=== PATIENT | male | born 1975 | race Caucasian/White ===

== ENCOUNTER → 2017-03-04 | Outpatient (CLI) | payer OTHER ==
[2017-03-04 17:26] LABS: BASO % 0.3 % (0.0-1.0); EOS # 0.1 K/mm3 (0.0-0.50); EOS % 1.3 % (0.0-3.0); LARGE UNSTAINED CELL # 0.1 K/mm3 (0.0-0.4); LARGE UNSTAINED CELL % 2.1 % (0.0-4.0); LYMPH # 1.7 K/mm3 (1.5-4.5); LYMPH % 26.5 % (24.0-44.0); MEAN CORPUSCULAR HEMOGLOBIN 31.3 pg (27.0-33.0); MEAN CORPUSCULAR HGB CONC 33.4 g/dl (32.0-36.5); MEAN CORPUSCULAR VOLUME 93.7 fl (80.0-96.0); MONO # 0.4 K/mm3 (0.0-0.8); MONO % 6.6 % (0.0-5.0); NEUTROPHILS % 63.2 % (36.0-66.0); PLATELET COUNT, AUTOMATED 232 k/mm3 (150-450); RED CELL DISTRIBUTION WIDTH 12.4 % (11.5-14.5); WHITE BLOOD COUNT 6.3 K/mm3 (4.0-10.0)
== END ==
LOC: M ADAMS 08:30
PROVIDERS: ATTEND Physician Assistant
DX: S16.1XXA Strain of muscle, fascia and tendon at neck level, initial encounter (principal); X58.XXXA Exposure to other specified factors, initial encounter; Y92.89 Other specified places as the place of occurrence of the external cause; Y93.89 Activity, other specified; Y99.8 Other external cause status

== ENCOUNTER → 2017-03-21 | Outpatient (CLI) | payer OTHER ==
--- NOTE | 2017-03-21 10:30 | REP ---
LEFT SHOULDER SERIES: Three views. HISTORY: Pain in the left shoulder. FINDINGS: Three views of the left shoulder demonstrate normal alignment of the glenohumeral articulation. There is mild narrowing and inferior spurring at the AC joint consistent with early osteoarthritis. No erosive change is seen. Periarticular soft tissues are unremarkable. IMPRESSION: Minimal AC joint spurring. Otherwise negative left shoulder views. Signed by Loki Garcia MD 03/21/2017 02:51 P
== END ==
LOC: M ADAMS 08:49
PROVIDERS: ATTEND Physician Assistant
DX: M25.512 Pain in left shoulder (principal)

== ENCOUNTER → 2017-05-01 | Outpatient (REF) | payer OTHER ==
[2017-05-01 12:45] LABS: MEAN CORPUSCULAR HEMOGLOBIN 31.3 pg (27.0-33.0); MEAN CORPUSCULAR HGB CONC 34.1 g/dl (32.0-36.5); MEAN CORPUSCULAR VOLUME 91.8 fl (80.0-96.0); RED CELL DISTRIBUTION WIDTH 12.8 % (11.5-14.5); WHITE BLOOD COUNT 4.2 K/mm3 (4.0-10.0)
[2017-05-01 13:07] LABS: URIC ACID 6.5 MG/DL (3.5-7.2)
[2017-05-01 13:12] LABS: ERYTHROCYTE SEDIMENTATION RATE 3 mm/hr (0-15)
[2017-05-01 13:24] LABS: BASOPHILS 1 % (0-4); EOSINOPHILS 1 % (0-5)
[2017-05-03 00:08] LABS: Lyme Disease IgG/IgM Antibodie <0.91 ISR (0.00-0.90); Lyme Disease IgM Ab Quantitati <0.80 index (0.00-0.79); SJOGREN'S ANTI SS-A <0.2 AI (0.0-0.9); SJOGREN'S ANTI SS-B <0.2 AI (0.0-0.9)
== END ==
LOC: M LABDRAW1 11:47
PROVIDERS: ATTEND Physician Assistant Surgical
DX: M25.512 Pain in left shoulder (principal)

== ENCOUNTER → 2017-06-21 | Outpatient (CLI) | payer OTHER ==
--- NOTE | 2017-06-22 08:33 | REP ---
MRI BRAIN WITHOUT AND WITH CONTRAST: HISTORY: Left hearing loss. CONTRAST: ProHance 19 mL. There are no areas of abnormal signal intensity in the brain. There is no intraparenchymal hemorrhage, infarct, mass or midline shift. There is no abnormal enhancement. The ventricular system is normal in appearance. There is no extracerebral collection. There is no cerebellopontine angle mass. The inner ear structures are normal in appearance. The mastoid air cells and sinuses are clear. IMPRESSION: There is no intracranial lesion. Signed by Arthur Washington MD 06/22/2017 08:33 A
== END ==
LOC: M RAD 16:05
PROVIDERS: ATTEND Otolaryngology
DX: H90.42 Sensorineural hearing loss, unilateral, left ear, with unrestricted hearing on the contralateral side (principal)
CPT/HCPCS: 70553; A9576

== ENCOUNTER → 2017-06-27 | Outpatient (CLI) | payer OTHER ==
--- NOTE | 2017-06-27 15:47 | REP ---
MRI CERVICAL SPINE WITHOUT CONTRAST: 06/27/2017. Clinical history: Cervical spondylosis. Evaluate for stenosis. Technique: Axial T1-T2 with sagittal T1, T2 and STIR sequences provided. Findings: The normal gentle cervical lordosis is reduced on the sagittal images. The vertebral body heights and their marrow signal are grossly normal throughout. There is loss of disc water signal from C2-3 through C6-7. The disc space height is maintained. The C7-T1 and T1-2 levels maintain height and water signal. Small anterior osteophytes at C6-7. The dens was intact and showed normal relationship to the anterior arch of C1 on this study. There is no cervical cord intrinsic signal abnormality, syrinx, atrophy or mass. Ample subarachnoid space at the craniocervical junction with no cerebellar tonsillar ectopia. At C2-3 there is no disc bulge herniation and no spinal or foraminal stenosis. At C3-4 there is no central canal stenosis. The foramina show encroachment due to uncinate spurs bilaterally. At C4-5 there no significant disc bulge or central canal stenosis. Uncinate spurring on the right contributes to some mild foraminal encroachment, left foramen ample. At C5-6 there is no spinal or foraminal stenosis. No disc herniation or bulge. At C6-7 broad-based disc bulge with a small central annular tear but no thinning of the subarachnoid space, cord compression, spinal or foraminal stenosis. Some uncinate spurs noted but the foramina marginally adequate. At C7-T1 there is no disc bulge or herniation and no spinal or foraminal stenosis. Impression: 1. Mild degenerative disc changes with loss of disc water signal from C2-3 through C6-7 representing some spondylosis and minimal disc bulges as described. The largest at C6-7 but no protrusion, cord compression, central canal stenosis or intrinsic cord signal abnormality. 2. Some mild foraminal encroachment as described above, due to uncinate spurs. Signed by Yunier Jamison MD 06/27/2017 05:16 P
== END ==
LOC: M RAD 13:13
PROVIDERS: ATTEND Physician Assistant Surgical
DX: M47.892 Other spondylosis, cervical region (principal)

== ENCOUNTER → 2017-10-04 | Outpatient (CLI) | payer OTHER ==
--- NOTE | 2017-10-04 19:32 | REP ---
Clinical: Pain with recent trauma. Technique: AP, lateral, bilateral oblique views left wrist. Findings: The carpal bones, surrounding osseous structures, soft tissues, and joint spaces are normal. There is no evidence for acute fracture or dislocation. No subcutaneous emphysema or radiodense foreign body. Impression: Normal wrist series. No acute fracture or dislocation Signed by Basil Montgomery MD 10/04/2017 04:23 P
== END ==
LOC: M ADAMS 08:40
PROVIDERS: ATTEND Physician Assistant Medical
DX: S60.212A Contusion of left wrist, initial encounter (principal); X58.XXXA Exposure to other specified factors, initial encounter; Y92.89 Other specified places as the place of occurrence of the external cause; Y93.89 Activity, other specified; Y99.8 Other external cause status

== ENCOUNTER 2018-02-14 08:26 | Day surgery (SDC) | payer OTHER, SELFPAY ==
[2018-02-14] MEDS ORDERED: LR 1,000 ML IV ×3 (09:00→14:00)
[2018-02-14] MEDS ORDERED: LIDOCAINE 2% INJ 100 MG/5 ML SDV (FOR ANES.) As Ordered (10:51)
[2018-02-14] MEDS ORDERED: PROPOFOL 200 MG/20 ML VIAL As Ordered (10:51)
[2018-02-14] MEDS ORDERED: ROCURONIUM BROMIDE 50 MG/5 ML VIAL As Ordered (10:52)
[2018-02-14] MEDS ORDERED: MIDAZOLAM INJ 2 MG/2 ML VIAL (J2250) As Ordered (10:53)
[2018-02-14] MEDS ORDERED: fentaNYL 100 MCG/2 ML INJECTION (J3010) As Ordered ×2 (10:53→12:53)
[2018-02-14] MEDS ORDERED: REMIFENTANIL 1MG 3ML VIAL As Ordered (10:53)
[2018-02-14] MEDS: LIDOCAINE W/EPINEPHRINE 1% 20ML VIAL As Ordered (12:15)
[2018-02-14] MEDS: EPINEPHrine 1MG/ML INJ 30ML MD-VIAL As Ordered (12:30)
[2018-02-14] MEDS: METHYLENE BLUE 0.5% (5MG/ML) 10 ML AMP (PROVAYBLUE)(Q9968 PER 1MG) As Ordered (12:30)
[2018-02-14] MEDS ORDERED: ONDANSETRON 4MG/2ML VIAL (J2405) As Ordered (12:42)
[2018-02-14] MEDS ORDERED: dexameTHASONE 4 MG/ML 1ML VIAL (J1100) As Ordered (12:42)
[2018-02-14] MEDS: PERCOCET 5MG/325MG TAB PO ×2 (13:52→14:18)
[2018-02-14] MEDS ORDERED: ONDANSETRON 4MG/2ML VIAL (J2405) IV (14:00)
[2018-02-14] MEDS ORDERED: fentaNYL 100 MCG/2 ML INJECTION (J3010) IV (14:00)
[2018-02-14] MEDS: SUMAtriptan SUCCINATE 25 MG TAB PO ×2 (14:54→14:55)
[2018-02-14] MEDS ORDERED: traMADol 50 MG TAB PO (21:00)
== END 2018-02-14 15:50 | disposition home or self-care (01) ==
LOC: M SDC 08:26
DX: J34.2 Deviated nasal septum (principal); J32.0 Chronic maxillary sinusitis; J31.0 Chronic rhinitis; K21.9 Gastro-esophageal reflux disease without esophagitis; G43.909 Migraine, unspecified, not intractable, without status migrainosus; Z79.899 Other long term (current) drug therapy
CPT/HCPCS: 30520

== ENCOUNTER → 2018-02-23 | Outpatient (CLI) | payer OTHER ==
[2018-02-23 13:37] LABS: ALT/SGPT 91 U/L (12-78)
[2018-02-23 13:37] LABS: AST/SGOT 35 U/L (7-37)
== END ==
LOC: M ADAMS 10:55
DX: M19.90 Unspecified osteoarthritis, unspecified site (principal)
CPT/HCPCS: 84460

== ENCOUNTER 2018-07-30 13:27 | Observation (INO) | payer OTHER ==
[2018-07-30] MEDS: diazePAM 5 MG TAB PO (15:27)
[2018-07-30] MEDS: KETOROLAC 30 MG/ML VIAL (J1885) IV (15:28)
[2018-07-30] MEDS ORDERED: HYDROMORPHONE HCL 0.5 MG/ 0.5 ML SYRINGE (J1170 PER 1) As Ordered (16:47)
[2018-07-30] MEDS: HYDROMORPHONE HCL 0.5 MG/ 0.5 ML SYRINGE (J1170 PER 1) IV ×3 (16:54→21:19)
[2018-07-30] MEDS: oxyCODONE 5MG TAB PO (19:00)
[2018-07-30 21:24] LABS: HEMATOCRIT 45.1 % (42.0-52.0); HEMOGLOBIN 15.1 g/dl (13.5-17.5); MEAN CORPUSCULAR HEMOGLOBIN 30.3 pg (27.0-33.0); MEAN CORPUSCULAR HGB CONC 33.5 g/dl (32.0-36.5); MEAN CORPUSCULAR VOLUME 90.4 fl (80.0-96.0); PLATELET COUNT, AUTOMATED 234 10^3/uL (150-450); RED BLOOD COUNT 4.99 10^6/uL (4.30-6.10); RED CELL DISTRIBUTION WIDTH 12.8 % (11.5-14.5); WHITE BLOOD COUNT 5.8 10^3/uL (4.0-10.0)
[2018-07-30] MEDS ORDERED: ACETAMINOPHEN 500 MG TAB PO (21:45)
[2018-07-30] MEDS ORDERED: SUMAtriptan SUCCINATE 25 MG TAB PO (21:45)
[2018-07-30] MEDS ORDERED: PERCOCET 5MG/325MG TAB PO (21:45)
[2018-07-30] MEDS: AMITRIPTYLINE 50 MG TAB PO (22:20)
[2018-07-30] MEDS: TOPIRAMATE (TopAMAX) 25 MG TAB PO (22:21)
[2018-07-30] MEDS: PERCOCET 5MG/325MG TAB PO (23:25)
[2018-07-31] MEDS: PERCOCET 5MG/325MG TAB PO ×2 (06:09→13:49)
[2018-07-31 06:28] LABS: HEMATOCRIT 45.8 % (42.0-52.0); HEMOGLOBIN 15.3 g/dl (13.5-17.5); MEAN CORPUSCULAR HEMOGLOBIN 30.5 pg (27.0-33.0); MEAN CORPUSCULAR HGB CONC 33.4 g/dl (32.0-36.5); MEAN CORPUSCULAR VOLUME 91.2 fl (80.0-96.0); PLATELET COUNT, AUTOMATED 227 10^3/uL (150-450); RED BLOOD COUNT 5.02 10^6/uL (4.30-6.10); RED CELL DISTRIBUTION WIDTH 12.9 % (11.5-14.5); WHITE BLOOD COUNT 5.1 10^3/uL (4.0-10.0)
[2018-07-31 06:48] LABS: ANION GAP 5 MEQ/L (8-16); BLOOD UREA NITROGEN 15 MG/DL (7-18); CALCIUM LEVEL 8.5 MG/DL (8.5-10.1); CARBON DIOXIDE LEVEL 27 MEQ/L (21-32); CHLORIDE LEVEL 111 MEQ/L (98-107); CREATININE FOR GFR 1.27 MG/DL (0.70-1.30); GLOMERULAR FILTRATION RATE > 60.0 (>60); GLUCOSE, FASTING 91 MG/DL (70-100); POTASSIUM SERUM 3.6 MEQ/L (3.5-5.1); SODIUM LEVEL 143 MEQ/L (136-145)
[2018-07-31] MEDS: OMEPRAZOLE 20 MG CAP PO (08:35)
[2018-07-31] MEDS: ENOXAPARIN 40 MG/0.4 ML SYRINGE (J1650) SC (08:35)
[2018-07-31] MEDS: tiZANidine 4 MG TAB PO (08:36)
== END 2018-07-31 14:40 | disposition home or self-care (01) ==
LOC: M ED 13:27 → M ED INP 21:51 → M MS5PR 23:16
PROVIDERS: Internal Medicine
DX: M54.5 Low back pain (principal); G89.29 Other chronic pain; G43.909 Migraine, unspecified, not intractable, without status migrainosus; K21.9 Gastro-esophageal reflux disease without esophagitis; Z79.899 Other long term (current) drug therapy
CPT/HCPCS: J1885

== ENCOUNTER → 2019-07-02 | Outpatient (REF) | payer OTHER ==
[~2019-07-02] MED LIST: AMIT25TA PO; AMIT50TA PO; APAP500T10 PO; FOLI1TAB11 PO; MELO7.5T7 PO; MOBI4TAB PO; OMEP20CA4 PO; PERCOCET PO; SUMA50TA2 PO; TIZA2CAP PO; TIZA2TA PO; TOPI50TA9 PO; TYLE500T78 PO; XYZA5TAB4 PO
[2019-07-02 12:48] LABS: CHOLESTEROL RISK RATIO 6.675 (<5)
[2019-07-02 13:06] LABS: ALBUMIN 4.5 GM/DL (3.2-5.2); ALT/SGPT 47 U/L (12-78); BILIRUBIN,TOTAL 0.4 MG/DL (0.2-1.0); BLOOD UREA NITROGEN 13 MG/DL (7-18); CALCIUM LEVEL 9.8 MG/DL (8.5-10.1); CARBON DIOXIDE LEVEL 25 MEQ/L (21-32); CHLORIDE LEVEL 107 MEQ/L (98-107); CREATININE FOR GFR 1.24 MG/DL (0.70-1.30); GLOMERULAR FILTRATION RATE > 60.0 (>60); GLUCOSE, FASTING 92 MG/DL (70-100); POTASSIUM SERUM 4.3 MEQ/L (3.5-5.1); SODIUM LEVEL 141 MEQ/L (136-145); TOTAL PROTEIN 7.3 GM/DL (6.4-8.2)
== END ==
LOC: M SFHCADAM 08:16
PROVIDERS: ATTEND Physician Assistant
DX: G43.909 Migraine, unspecified, not intractable, without status migrainosus (principal); M15.0 Primary generalized (osteo)arthritis; E78.00 Pure hypercholesterolemia, unspecified

== ENCOUNTER → 2020-08-11 | Outpatient (REF) | payer OTHER ==
[~2020-08-11] MED LIST changes: +OMEP1CAP73 PO; -OMEP20CA4 PO
[2020-08-11 12:29] LABS: HEMATOCRIT 50.7 % (42.0-52.0); HEMOGLOBIN 16.5 g/dl (13.5-17.5); MEAN CORPUSCULAR HEMOGLOBIN 29.9 pg (27.0-33.0); MEAN CORPUSCULAR HGB CONC 32.5 g/dl (32.0-36.5); MEAN CORPUSCULAR VOLUME 91.8 fl (80.0-96.0); PLATELET COUNT, AUTOMATED 273 10^3/uL (150-450); RED BLOOD COUNT 5.52 10^6/uL (4.30-6.10); WHITE BLOOD COUNT 5.7 10^3/uL (4.0-10.0)
[2020-08-11 13:31] LABS: ALBUMIN 4.3 GM/DL (3.2-5.2); ALT/SGPT 44 U/L (12-78); BILIRUBIN,TOTAL 0.3 MG/DL (0.2-1.0); BLOOD UREA NITROGEN 10 MG/DL (7-18); CALCIUM LEVEL 9.4 MG/DL (8.5-10.1); CARBON DIOXIDE LEVEL 24 MEQ/L (21-32); CHLORIDE LEVEL 110 MEQ/L (98-107); CHOLESTEROL LEVEL 290 MG/DL (<200); CHOLESTEROL RISK RATIO 6.904 (<5); CREATININE FOR GFR 1.15 MG/DL (0.70-1.30); FREE T4 0.86 NG/DL (0.76-1.46); GLOMERULAR FILTRATION RATE > 60.0 (>60); GLUCOSE, FASTING 96 MG/DL (70-100); HDL CHOLESTEROL 42 MG/DL (>40); LDL CHOLESTEROL 208 MG/DL (<100); NON-HDL-C 248 MG/DL; POTASSIUM SERUM 4.8 MEQ/L (3.5-5.1); SODIUM LEVEL 140 MEQ/L (136-145); TOTAL PROTEIN 7.3 GM/DL (6.4-8.2); TRIGLYCERIDES LEVEL 201 MG/DL (<150)
== END ==
LOC: M SFHCADAM 08:21
PROVIDERS: ATTEND Physician Assistant
DX: E78.00 Pure hypercholesterolemia, unspecified (principal); K21.9 Gastro-esophageal reflux disease without esophagitis

== ENCOUNTER 2022-03-23 17:24 | Emergency (ER) | payer OTHER ==
[~2022-03-23] VITALS: Ht 172.7 cm; Wt 98.2 kg
[~2022-03-23 17:24] MED LIST changes: -AMIT25TA PO; +AMIT25TA17 PO
[2022-03-23 17:27] VITALS: BP 140/93
== END 2022-03-24 02:54 | disposition left against medical advice (07) ==
LOC: M ED 17:24
DX: Z53.21 Procedure and treatment not carried out due to patient leaving prior to being seen by health care provider (principal)

== ENCOUNTER 2022-03-29 08:21 | Emergency (ER) | payer OTHER ==
[~2022-03-29] VITALS: Ht 172.7 cm; Wt 101.0 kg
[2022-03-29 09:32] LABS: BASO % 0.4 % (0.0-1.0); EOS # 0.2 10^3/uL (0.0-0.5); EOS % 2.9 % (0.0-3.0); HEMATOCRIT 49.1 % (42.0-52.0); HEMOGLOBIN 16.3 g/dl (13.5-17.5); LYMPH # 1.6 10^3/uL (1.5-5.0); MEAN CORPUSCULAR HEMOGLOBIN 30.2 pg (27.0-33.0); MEAN CORPUSCULAR HGB CONC 33.2 g/dl (32.0-36.5); MEAN CORPUSCULAR VOLUME 90.9 fl (80.0-96.0); MONO # 0.4 10^3/uL (0.0-0.8); MONO % 8.1 % (2.0-8.0); NEUTROPHILS # 3.2 10^3/uL (1.5-8.5); PLATELET COUNT, AUTOMATED 249 10^3/uL (150-450); WHITE BLOOD COUNT 5.5 10^3/uL (4.0-10.0)
[2022-03-29 09:55] LABS: ALBUMIN 4.1 GM/DL (3.2-5.2); ALT/SGPT 51 U/L (12-78); BILIRUBIN,DIRECT < 0.1 MG/DL (0.0-0.2); BILIRUBIN,TOTAL 0.3 MG/DL (0.2-1.0); BLOOD UREA NITROGEN 14 MG/DL (7-18); CALCIUM LEVEL 9.7 MG/DL (8.5-10.1); CARBON DIOXIDE LEVEL 25 MEQ/L (21-32); CHLORIDE LEVEL 111 MEQ/L (98-107); GLOMERULAR FILTRATION RATE > 60.0 (>60); GLUCOSE, FASTING 105 MG/DL (70-100); LIPASE 112 U/L (73-393); POTASSIUM SERUM 4.3 MEQ/L (3.5-5.1); SODIUM LEVEL 142 MEQ/L (136-145); TOTAL PROTEIN 7.2 GM/DL (6.4-8.2)
[2022-03-29] MEDS ORDERED: ISOVUE-370 76% 100ML VIAL As Ordered ONE (11:36)
[2022-03-29] MEDS ORDERED: KETOROLAC 30 MG/ML 1ML VIAL IV ONE (13:55)
[2022-03-29] MEDS ORDERED: DICYCLOMINE 10 MG CAP PO ONE (13:55)
[2022-03-29] MEDS ORDERED: DICY10CA13 PO (13:57)
[2022-03-29 14:04] VITALS: BP 128/89
== END 2022-03-29 14:13 | disposition home or self-care (01) ==
LOC: M ED 08:21
DX: R10.9 Unspecified abdominal pain (principal); R19.7 Diarrhea, unspecified; K76.0 Fatty (change of) liver, not elsewhere classified; R11.0 Nausea; R51.9 Headache, unspecified; K21.9 Gastro-esophageal reflux disease without esophagitis; F17.200 Nicotine dependence, unspecified, uncomplicated; Z79.899 Other long term (current) drug therapy
CPT/HCPCS: 74177; 80048; 80076; 83690; 85025; 87428; 96374; 99284; J1885; Q9967

== ENCOUNTER → 2022-06-16 | Outpatient (CLI) | payer OTHER ==
[~2022-06-16] MED LIST changes: +DICY10CA13 PO
== END ==
LOC: M ADAMS 08:53
PROVIDERS: ATTEND Physician Assistant
DX: M79.671 Pain in right foot (principal)

== ENCOUNTER → 2022-06-16 | Outpatient (REF) | payer OTHER ==
[2022-06-16 13:08] LABS: HEMOGLOBIN 15.5 g/dl (13.5-17.5); MEAN CORPUSCULAR HEMOGLOBIN 30.2 pg (27.0-33.0); MEAN CORPUSCULAR VOLUME 91.4 fl (80.0-96.0); PLATELET COUNT, AUTOMATED 258 10^3/uL (150-450); RED BLOOD COUNT 5.14 10^6/uL (4.30-6.10); WHITE BLOOD COUNT 4.9 10^3/uL (4.0-10.0)
[2022-06-16 13:26] LABS: HEMOGLOBIN A1c 5.5 %
[2022-06-16 13:49] LABS: ALBUMIN 4.1 GM/DL (3.2-5.2); ALT/SGPT 56 U/L (12-78); BILIRUBIN,TOTAL 0.3 MG/DL (0.2-1.0); BLOOD UREA NITROGEN 16 MG/DL (7-18); CALCIUM LEVEL 9.6 MG/DL (8.5-10.1); CARBON DIOXIDE LEVEL 22 MEQ/L (21-32); CHLORIDE LEVEL 109 MEQ/L (98-107); CHOLESTEROL LEVEL 274 MG/DL (<200); CREATININE FOR GFR 1.15 MG/DL (0.70-1.30); FREE T4 0.78 NG/DL (0.76-1.46); GLOMERULAR FILTRATION RATE > 60.0 (>60); GLUCOSE, FASTING 90 MG/DL (70-100); HDL CHOLESTEROL 40 MG/DL (>40); LDL CHOLESTEROL 190 MG/DL (<100); NON-HDL-C 234 MG/DL; POTASSIUM SERUM 4.5 MEQ/L (3.5-5.1); SODIUM LEVEL 139 MEQ/L (136-145); THYROID STIMULATING HORMONE 0.731 uIU/ML (0.358-3.740); TOTAL PROTEIN 6.9 GM/DL (6.4-8.2); TRIGLYCERIDES LEVEL 218 MG/DL (<150)
== END ==
LOC: M SFHCADAM 08:46
PROVIDERS: ATTEND Physician Assistant
DX: J32.9 Chronic sinusitis, unspecified (principal); M79.671 Pain in right foot; E78.00 Pure hypercholesterolemia, unspecified; F17.210 Nicotine dependence, cigarettes, uncomplicated; E66.9 Obesity, unspecified; Z13.1 Encounter for screening for diabetes mellitus

== ENCOUNTER → 2022-12-14 | Outpatient (REF) | payer OTHER ==
[~2022-12-14] MED LIST changes: +TOPI-254 PO; -TOPI50TA9 PO
[2022-12-14 16:41] LABS: HEMATOCRIT 51.9 % (42.0-52.0); HEMOGLOBIN 16.8 g/dl (13.5-17.5); MEAN CORPUSCULAR HEMOGLOBIN 30.1 pg (27.0-33.0); MEAN CORPUSCULAR HGB CONC 32.4 g/dl (32.0-36.5); PLATELET COUNT, AUTOMATED 282 10^3/uL (150-450); RED BLOOD COUNT 5.58 10^6/uL (4.30-6.10); WHITE BLOOD COUNT 6.7 10^3/uL (4.0-10.0)
[2022-12-14 16:56] LABS: HEMOGLOBIN A1c 5.7 % (4.0-6.0)
[2022-12-14 16:57] LABS: ALBUMIN 4.5 G/DL (3.2-5.2); ALKALINE PHOSPHATASE 69 U/L (46-116); ALT/SGPT 67 U/L (7.0-40); AST/SGOT 24 U/L (<34); BILIRUBIN,TOTAL 0.7 MG/DL (0.3-1.2); BLOOD UREA NITROGEN 14 MG/DL (9-23); CARBON DIOXIDE LEVEL 28 MMOL/L (20-31); CHLORIDE LEVEL 106 MMOL/L (98-107); CHOLESTEROL LEVEL 196 MG/DL (<200); CHOLESTEROL RISK RATIO 4.18 (<5); CREATININE FOR GFR 1.07 MG/DL (0.70-1.30); GLOMERULAR FILTRATION RATE > 60.0 (>60); GLUCOSE, FASTING 84 MG/DL (60-100); HDL CHOLESTEROL 46.8 MG/DL (>40); LDL CHOLESTEROL 106.2 MG/DL (<100); NON-HDL-C 149 MG/DL; POTASSIUM SERUM 4.8 MMOL/L (3.5-5.1); SODIUM LEVEL 142 MMOL/L (136-145); THYROID STIMULATING HORMONE 1.448 uIU/ML (0.55-4.78); TOTAL PROTEIN 7.3 G/DL (5.7-8.2); TRIGLYCERIDES LEVEL 215 MG/DL (<150)
== END ==
LOC: M SFHCADAM 12:02
PROVIDERS: ATTEND Physician Assistant
DX: F17.210 Nicotine dependence, cigarettes, uncomplicated (principal); E66.01 Morbid (severe) obesity due to excess calories; J32.9 Chronic sinusitis, unspecified; Z13.1 Encounter for screening for diabetes mellitus; E78.00 Pure hypercholesterolemia, unspecified

== ENCOUNTER 2023-02-20 06:58 | Day surgery (SDC) | payer OTHER ==
[~2023-02-20] VITALS: Ht 172.7 cm; Wt 107.0 kg
[~2023-02-20 06:58] MED LIST changes: +ATOR1TAB21 PO; +FLUT50SP17 INH; +MELO7.5T35 PO; +NS 1,000 ML IV ONE
[2023-02-20] MEDS ORDERED: propofoL 200 MG/20 ML VIAL As Ordered ONE (08:52)
[2023-02-20 09:10] VITALS: BP 156/103
== END 2023-02-20 09:18 | disposition home or self-care (01) ==
LOC: M OPP 06:58
PROVIDERS: ATTEND Internal Medicine Gastroenterology
DX: Z12.11 Encounter for screening for malignant neoplasm of colon (principal); K63.5 Polyp of colon; K57.30 Diverticulosis of large intestine without perforation or abscess without bleeding; K64.8 Other hemorrhoids; F17.200 Nicotine dependence, unspecified, uncomplicated; Z79.02 Long term (current) use of antithrombotics/antiplatelets; Z79.1 Long term (current) use of non-steroidal anti-inflammatories (NSAID); Z79.51 Long term (current) use of inhaled steroids; Z79.818 Long term (current) use of other agents affecting estrogen receptors and estrogen levels; Z79.899 Other long term (current) drug therapy

== ENCOUNTER → 2023-12-28 | Outpatient (REF) | payer OTHER ==
[~2023-12-28] MED LIST changes: -AMIT25TA17 PO; +AMIT25TA19 PO; +DICY-61 PO; -DICY10CA13 PO; -FLUT50SP17 INH; +FLUTISP INH; -NS 1,000 ML IV ONE; +TOPI-21 PO; -TOPI-254 PO
[2023-12-28 17:01] LABS: HEMATOCRIT 48.4 % (42.0-52.0); HEMOGLOBIN 16.2 g/dl (13.5-17.5); MEAN CORPUSCULAR HEMOGLOBIN 30.2 pg (27.0-33.0); MEAN CORPUSCULAR HGB CONC 33.5 g/dl (32.0-36.5); MEAN CORPUSCULAR VOLUME 90.1 fl (80.0-96.0); PLATELET COUNT, AUTOMATED 278 10^3/uL (150-450); RED BLOOD COUNT 5.37 10^6/uL (4.30-6.10); WHITE BLOOD COUNT 6.4 10^3/uL (4.0-10.0)
[2023-12-28 17:05] LABS: ALBUMIN 4.6 G/DL (3.2-5.2); ALKALINE PHOSPHATASE 51 U/L (46-116); ALT/SGPT 42 U/L (7.0-40); AST/SGOT 25 U/L (<34); BILIRUBIN,TOTAL 0.6 MG/DL (0.3-1.2); BLOOD UREA NITROGEN 19 MG/DL (9-23); CALCIUM LEVEL 9.8 MG/DL (8.5-10.1); CARBON DIOXIDE LEVEL 29 MMOL/L (20-31); CHLORIDE LEVEL 107 MMOL/L (98-107); CHOLESTEROL LEVEL 150 MG/DL (<200); CHOLESTEROL RISK RATIO 3.94 (<5); CREATININE FOR GFR 1.25 MG/DL (0.70-1.30); GLOMERULAR FILTRATION RATE > 60.0 (>60); GLUCOSE, FASTING 96 MG/DL (60-100); LDL CHOLESTEROL 84.8 MG/DL (<100); POTASSIUM SERUM 4.7 MMOL/L (3.5-5.1); SODIUM LEVEL 140 MMOL/L (136-145); TRIGLYCERIDES LEVEL 136 MG/DL (<150)
[2023-12-28 17:37] LABS: HEMOGLOBIN A1c 5.2 % (4.0-6.0)
== END ==
LOC: M SFHCADAM 12:08
PROVIDERS: ATTEND Physician Assistant
DX: G43.709 Chronic migraine without aura, not intractable, without status migrainosus (principal); J32.9 Chronic sinusitis, unspecified; F17.210 Nicotine dependence, cigarettes, uncomplicated; E66.01 Morbid (severe) obesity due to excess calories; E78.00 Pure hypercholesterolemia, unspecified

== ENCOUNTER → 2024-04-12 | Outpatient (CLI) | payer OTHER | LOC: M RAD 08:16 | PROVIDERS: ATTEND Physician Assistant Medical | DX: J32.0 Chronic maxillary sinusitis (principal) ==

== ENCOUNTER → 2024-08-05 | Outpatient (CLI) | payer OTHER | LOC: M SLEEP 20:00 | PROVIDERS: ATTEND Internal Medicine Pulmonary Disease | DX: R40.0 Somnolence (principal); G47.33 Obstructive sleep apnea (adult) (pediatric) ==

== ENCOUNTER → 2025-01-03 | Outpatient (REF) | payer OTHER ==
[2025-01-03 14:28] LABS: HEMATOCRIT 46.8 % (42.0-52.0); HEMOGLOBIN 15.3 g/dl (13.5-17.5); MEAN CORPUSCULAR HEMOGLOBIN 29.7 pg (27.0-33.0); MEAN CORPUSCULAR HGB CONC 32.7 g/dl (32.0-36.5); MEAN CORPUSCULAR VOLUME 90.9 fl (80.0-96.0); PLATELET COUNT, AUTOMATED 254 10^3/uL (150-450); RED BLOOD COUNT 5.15 10^6/uL (4.30-6.10); WHITE BLOOD COUNT 5.9 10^3/uL (4.0-10.0)
[2025-01-03 14:49] LABS: PSA SCREENING 1.26 NG/ML (< 4.00)
[2025-01-03 14:53] LABS: ALBUMIN 4.2 G/DL (3.2-5.2); ALKALINE PHOSPHATASE 60 U/L (40-129); ALT/SGPT 41 U/L (7.0-40); AST/SGOT 21 U/L (<34); BILIRUBIN,TOTAL 0.4 MG/DL (0.3-1.2); BLOOD UREA NITROGEN 19 MG/DL (9-23); CALCIUM LEVEL 9.4 MG/DL (8.5-10.1); CARBON DIOXIDE LEVEL 25 MMOL/L (20-31); CHLORIDE LEVEL 110 MMOL/L (98-107); CHOLESTEROL LEVEL 137 MG/DL (<200); CHOLESTEROL RISK RATIO 3.84 (<5); CREATININE FOR GFR 1.11 MG/DL (0.70-1.30); FREE T4 1.08 NG/DL (0.89-1.76); GLOMERULAR FILTRATION RATE > 60.0 (>56); GLUCOSE, FASTING 100 MG/DL (60-100); HDL CHOLESTEROL 35.6 MG/DL (>40); LDL CHOLESTEROL 70.8 MG/DL (<100); NON-HDL-C 101.4 MG/DL; POTASSIUM SERUM 4.4 MMOL/L (3.5-5.1); SODIUM LEVEL 147 MMOL/L (136-145); TOTAL PROTEIN 6.8 G/DL (5.7-8.2); TRIGLYCERIDES LEVEL 153 MG/DL (<150)
[2025-01-03 14:54] LABS: THYROID STIMULATING HORMONE 1.084 uIU/ML (0.55-4.78)
[2025-01-03 14:57] LABS: HEMOGLOBIN A1c 5.4 % (4.0-6.0)
[2025-01-03 15:00] LABS: FOLATE 13.1 NG/ML (>5.4)
== END ==
LOC: M SFHCADAM 08:20
PROVIDERS: ATTEND Physician Assistant
DX: Z12.5 Encounter for screening for malignant neoplasm of prostate (principal); E78.00 Pure hypercholesterolemia, unspecified; Z13.1 Encounter for screening for diabetes mellitus; G43.909 Migraine, unspecified, not intractable, without status migrainosus; K21.9 Gastro-esophageal reflux disease without esophagitis
CPT/HCPCS: 80053; 80061; 82607; 82746; 83036; 84439; 84443; 85027; G0103

== ENCOUNTER → 2025-02-07 | Outpatient (CLI) | payer OTHER | LOC: M RAD 13:56 | PROVIDERS: ATTEND Physician Assistant | DX: F17.211 Nicotine dependence, cigarettes, in remission (principal) ==